=== PATIENT | female | born 1960 | race Caucasian/White ===

== ENCOUNTER 2017-07-08 09:22 | Emergency (ER) | payer BC ==
[2017-07-08] MEDS ORDERED: Norflex 60 MG/2 ML IM ONE (09:48)
--- NOTE | 2017-07-08 09:50 | ERPHSYRPT ---
- History of Present Illness Time Seen by Provider: 07/08/17 09:28 Source: patient, family Exam Limitations: no limitations Patient Subjective Stated Complaint: PT HERE FOR PAIN TO LEFT HIP RADIATING DOWN LEFT LEG SINCE JUNE 22,SHE STATES STARTED AFTER BENDING TO HUG SOMEONE, USING TENS UNIT AT HOME Triage Nursing Assessment: PT ALERT, ARRIVED PER OSVALDO W/D/P, NO EDEMA NOTED , PT UP TO B ATHROOM WITH NO DIFFICULTY Physician History: patient developed left hip and lower left sided back pain in mid June after bending over and twisting to hug someone; no prior hx; no numbness; no falls Timing/Duration: week(s) (2), sudden, worse Occured at: home Context: bending, twisted Quality: aching Hip Pain Location: hip (L) (and lower back left) Severity of Pain-Max: severe Severity of Pain-Current: moderate Modifying Factors: Improves With: movement Symptoms prior to fall: none Associated Symptoms: trouble walking (due to pain) Allergies/Adverse Reactions: erythromycin base [Erythromycin Base] Allergy (Verified 07/08/17 09:45) Home Medications: Buspirone HCl 10 mg PO BID 01/13/12 [History] Clonazepam [Klonopin] 1 mg PO Q12H PRN PRN 01/13/12 [History] Estropipate [Ogen] 0.75 mg PO DAILY 01/13/12 [History] Fluoxetine HCl [Prozac] 40 mg PO DAILY 01/13/12 [History] Levothyroxine Sodium 125 Mcg [Synthroid 125 Mcg] 100 mcg PO DAILY 01/13/12 [ History] Oxybutynin Chloride 5 mg [Ditropan 5 MG] 5 mg PO BID 01/13/12 [History] Hx Tetanus, Diphtheria Vaccination/Date Given: Yes (UP TO DATE) Hx Influenza Vaccination/Date Given: No Hx Pneumococcal Vaccination/Date Given: No Immunizations Up to Date: Yes - Past Medical History Pertinent Past Medical History: Yes Endocrine Medical History: Hypothyroidism Psycho-Social History: Anxiety, Depression - Past Surgical History Past Surgical History: Yes Female Surgical History: Hysterectomy - Social History Smoking Status: Never smoker Exposure to second hand smoke: No Drug Use: none Patient Lives Alone: No - Female History Hx Last Menstrual Period: HYSTER Hx Now: No - Nursing Vital Signs Nursing Vital Signs: Initial Vital Signs Temperature 97.7 F 07/08/17 09:39 Pulse Rate 64 07/08/17 09:39 Respiratory Rate 16 07/08/17 09:39 Blood Pressure 140/73 07/08/17 09:39 O2 Sat by Pulse Oximetry 98 07/08/17 09:39 Pain Scale Pain Intensity 10 - Physical Exam SpO2: 98 Oxygen Delivery: Room Air - Course Nursing assessment & vital signs reviewed: Yes - Radiology Exams Left Hip X-ray Interpretation: Interpreted by me, Negative, No Fracture L-Spine X-ray Interpretation: Interpreted by me, No Fracture, No Subluxation, Other ( mild spurring and DJD) Pelvis X-ray Interpretation: Interpreted by me, Negative, No Fracture Ordered Tests: Active Orders 24 hr Category Date Time Status IV Insertion STAT Care 07/08/17 09:46 Active Re-Check Vital Signs STAT Care 07/08/17 09:46 Active HIP UNI (2V) INCL PEL IF DONE Stat Exams 07/08/17 09:47 Ordered LUMBAR COMPLETE (MIN 4 VIEWS) Stat Exams 07/08/17 09:46 Ordered Medication Summary Discontinued Medications Generic Name Dose Route Start Last Admin Trade Name Freq PRN Reason Stop Dose Admin Ketorolac Tromethamine 30 mg 07/08/17 09:46 07/08/17 10:04 Toradol 30 Mg Injection IV 07/08/17 09:47 30 mg STAT ONE Administration Ketorolac Tromethamine Confirm 07/08/17 09:52 Toradol 30 Mg Injection Administered 07/08/17 09:53 Dose 30 mg .ROUTE .STK-MED ONE Ketorolac Tromethamine 30 mg 07/08/17 10:03 07/08/17 10:05 Toradol 30 Mg Injection IM 07/08/17 10:04 30 mg STAT ONE Administration Orphenadrine Citrate 60 mg 07/08/17 09:48 07/08/17 10:02 Norflex 60 Mg/2 Ml IM 07/08/17 09:49 60 mg STAT ONE Administration Orphenadrine Citrate Confirm 07/08/17 09:52 Norflex 60 Mg/2 Ml Administered 07/08/17 09:53 Dose 60 mg .ROUTE .STK-MED ONE - Progress Progress: re-examined (after xr and meds) Progress Note: 07/08/17 10:41 rechecked and minimal relief; no change in exam; reviewed xr and exam findings; discussed treatment plan and instructions given; at bedside Counseled pt/family regarding: diagnosis, need for follow-up, rad results - Departure Time of Disposition: 10:44 Departure Disposition: Home Clinical Impression: Lumbar back pain, Left hip pain Condition: Stable Critical Care Time: No Referrals: SORAIDA LR [Primary Care Provider] - Instructions: Lumbar Muscle Strain (DC) Additional Instructions: Back pain instructions. Rest, ice x 24-48 hours, then warm compresses; no heavy lifting (>20#'s) x 3-5 days; call [facility] or [facility] doctor in am for follow up appointment and or referral as needed. Return if problems. Take meds as prescribed.Follow-up with family doctor as directed. Call for appointment. Return if any problems. If you smoke please stop. Call or follow up with your family doctor for assistance if you need it to stop. Please wear your seatbelt when driving. Have a nice day. Thank you for allowing us to participate in your care today. :o) Dr David Wild Prescriptions: Naproxen Sodium [Anaprox Ds] 550 mg PO Q8H PRN PRN #14 tablet PRN Reason: Pain Chlorzoxazone [Parafon Forte Dsc] 500 mg PO QID #20 tablet
[2017-07-08] MEDS ORDERED: Norflex 60 MG/2 ML ONE (09:52)
[2017-07-08] MEDS ORDERED: TORAdol 30 mg Injection ONE (09:52)
[2017-07-08] MEDS: TORAdol 30 mg Injection IV ONE ×2 (10:03→10:04)
[2017-07-08] MEDS ORDERED: TORAdol 30 mg Injection IM ONE (10:03)
[2017-07-08 10:54] VITALS: BP 131/76; PULSE 70; O2SAT 97
--- NOTE | 2017-07-08 21:04 | XRAY ---
Indication: Low back pain. Comparison: June 20, 2016. 5 views of the lumbar spine unchanged again demonstrating minimal dextroscoliosis centered at L2-L3, minimal multilevel anterior endplate spurring, and mild bilateral L5-S1 degenerative facet hypertrophy. No new/acute findings. Pelvic floor macrocalcifications possibly calcified uterine fibroid.
--- NOTE | 2017-07-08 21:06 | XRAY ---
Indication: Left hip pain. Comparison: None AP pelvis and 2 views of the left hip demonstrates lumbar degenerative changes reported separately. Pelvic floor macrocalcification possible calcified uterine fibroid. No other bony, articular, or soft tissue abnormalities.
== END 2017-07-08 10:54 | disposition home or self-care (01) ==
LOC: ED 09:22
DX: M54.5 Low back pain (principal); M25.552 Pain in left hip; M54.9 Dorsalgia, unspecified; Z79.899 Other long term (current) drug therapy
CPT/HCPCS: 72110; 73502; 96372; 99283; J1885; J2360

== ENCOUNTER 2021-07-27 15:55 | Emergency (ER) | payer BC, MEDICARE ==
[2021-07-27] MEDS ORDERED: Ativan 1 MG ONE ×2 (16:14→16:17)
[2021-07-27] MEDS: Ativan 1 MG PO ONE ×2 (16:16→16:20)
[2021-07-27] MEDS ORDERED: xanAX 0.5 MG PO ONE (16:18)
[2021-07-27] MEDS ORDERED: xanAX 0.5 MG ONE (16:20)
[2021-07-27 16:33] LABS: Absolute Neutrophil Ct (ANC) 4.73 x10^3/uL (1.4-6.9); Basophil (Absolute #) 0.06 x10^3/uL (0-0.4); Eosinophil % 0.5 % (0.00-5.0); Eosinophil (Absolute #) 0.03 x10^3/uL (0-0.5); Hematocrit 38.3 % (35-47); Hemoglobin 12.7 g/dL (12.0-16.0); Lymphocyte (Absolute #) 1.06 x10^3/uL (1.0-4.6); Lymphocytes % 16.9 % (24.0-44.0); Mean Cell Volume 99.2 fL (78-100); Mean Corpuscular Hemoglobin 32.9 pg (26-32); Mean Corpuscular Hgb Concent. 33.2 g/dL (32-36); Mean Platelet Volume 10.2 fL (7.5-11.0); Monocyte (Absolute #) 0.38 x10^3/uL (0.0-1.3); Monocytes % 6.1 % (0.0-12.0); Neutrophil % 75.3 % (36.0-66.0); Platelet Count 285 x10^3/uL (150-450); Red Blood Count 3.86 x10^6/uL (4.1-5.4); White Blood Count 6.3 x10^3/uL (4.0-10.5)
--- NOTE | 2021-07-27 16:50 | ERPHSYRPT ---
- History of Present Illness Time Seen by Provider: 07/27/21 16:02 Source: patient Exam Limitations: no limitations Patient Subjective Stated Complaint: pt here for suicidal thoughts today, she states she has thoughts fo harming herself frequently, she denies having a plan, pt is uncooperative at times Triage Nursing Assessment: pt alert, crying, anxious, resp easy, skin w/d/p. no edema noted. she state " if i feel this bad in summer then what am i going to do this fall?" Physician History: Patient is here for suicidal ideation. Patient states that she would like to kill herself. Patient appears to have some psychotic features. Patient states that she is hearing Satan's voice and God's voice. States that she has a previous remote attempt at killing herself. Patient reported to her PCP today that she was suicidal, was then sent over to this emergency department for further evaluation. On my exam she is tearful, she admits to self-harm, she has psychotic features. Timing/Duration: today Severity: severe Modifying Factors: Improves With: other Associated Symptoms: denies symptoms Allergies/Adverse Reactions: erythromycin base [Erythromycin Base] Allergy (Verified 07/27/21 16:08) Home Medications: Fluoxetine HCl [Prozac] 40 mg PO DAILY 01/13/12 [History] Levothyroxine Sodium 125 Mcg [Synthroid 125 Mcg] 88 mcg PO DAILY 01/13/12 [History] Buspirone HCl 5 mg [Buspar 5 mg] 1 ea DAILY 07/27/21 [History] estradioL [Estradiol] 1 ea DAILY 07/27/21 [History] Hx Tetanus, Diphtheria Vaccination/Date Given: Yes (UP TO DATE) Hx Influenza Vaccination/Date Given: No Hx Pneumococcal Vaccination/Date Given: No Immunizations Up to Date: Yes Travel Risk - International Travel Have you traveled outside of the country in past 3 weeks: No - Coronavirus Screening Are you exhibiting any of the following symptoms?: No Close contact with a COVID-19 positive Pt in past 14-21 Days: No - Vaccine Status Have you recieved a Covid-19 vaccination: Yes [employer]: [employer] - Vaccination Dates Date of 2cond Vaccination (if applicable): 2020 - Review of Systems Constitutional: No Fever, No Chills Eyes: No Symptoms Ears, Nose, & Throat: No Symptoms Respiratory: No Cough, No Dyspnea Cardiac: No Chest Pain, No Edema, No Syncope Abdominal/Gastrointestinal: No Abdominal Pain, No Nausea, No Vomiting, No Diarrhea Genitourinary Symptoms: No Dysuria Musculoskeletal: No Back Pain, No Neck Pain Skin: No Rash Neurological: No Dizziness, No Focal Weakness, No Sensory Changes Psychological: Depression, Suicidal Ideations, Emotional Lability, Hallucinations Endocrine: No Symptoms All Other Systems: Reviewed and Negative - Past Medical History Pertinent Past Medical History: Yes Neurological History: No Pertinent History Cardiac History: No Pertinent History Respiratory History: No Pertinent History Endocrine Medical History: Hypothyroidism Musculoskeletal History: Osteoarthritis Psycho-Social History: Anxiety, Depression Other Medical History: thyroid removed - Past Surgical History Past Surgical History: Yes Female Surgical History: Hysterectomy - Social History Smoking Status: Never smoker Exposure to second hand smoke: No Drug Use: marijuana Patient Lives Alone: No - Nursing Vital Signs Nursing Vital Signs: Initial Vital Signs Temperature 97.2 F 07/27/21 15:56 Pulse Rate 116 H 07/27/21 15:56 Respiratory Rate 22 07/27/21 15:56 Blood Pressure 180/160 07/27/21 15:56 Pain Scale Pain Intensity 0 - Physical Exam General Appearance: no apparent distress, alert Eye Exam: PERRL/EOMI, eyes nml inspection Ears, Nose, Throat Exam: normal ENT inspection, TMs normal, pharynx normal, moist mucous membranes Neck Exam: normal inspection, non-tender, supple, full range of motion Respiratory Exam: normal breath sounds, lungs clear, No respiratory distress Cardiovascular Exam: regular rate/rhythm, normal heart sounds, normal peripheral pulses Gastrointestinal/Abdomen Exam: soft, normal bowel sounds, No tenderness, No mass Back Exam: normal inspection, normal range of motion, No CVA tenderness, No vertebral tenderness Extremity Exam: normal inspection, normal range of motion, pelvis stable Neurologic Exam: alert, oriented x 3, cooperative, sensation nml, No motor deficits Skin Exam: normal color, warm, dry, No rash Lymphatic Exam: No adenopathy SpO2 Interpretation: normal Comments: 07/27/21 16:50 Psych exam: Patient has hallucinations, suicidal ideation, depression, emotional liability on exam she is tearful. - Course Nursing assessment & vital signs reviewed: Yes EKG Interpreted by Me: Sinus Rhythm Ordered Tests: Active Orders 24 hr Category Date Time Status EKG-ER Only STAT Care 07/27/21 16:10 Active House Regular Diet Diet 07/28/21 Breakfast Active ACETAMINOPHEN Stat Lab 07/27/21 16:29 Completed CBC W DIFF Stat Lab 07/27/21 16:29 Completed CMP Stat Lab 07/27/21 16:29 Completed ETHYL ALCOHOL Stat Lab 07/27/21 16:29 Completed SALICYLATE Stat Lab 07/27/21 16:29 Completed UA W/RFX CULTURE Stat Lab 07/27/21 16:42 Completed Urine Triage Profile Stat Lab 07/27/21 16:44 Completed Medication Summary Discontinued Medications Generic Name Dose Route Start Last Admin Trade Name Frandy PRN Reason Stop Dose Admin Alprazolam 1 mg 07/27/21 16:18 07/27/21 16:20 Alprazolam 0.5 Mg Tablet PO 07/27/21 16:19 1 mg STAT ONE Administration Alprazolam Confirm 07/27/21 16:20 Alprazolam 0.5 Mg Tablet Administered 07/27/21 16:21 Dose 1 mg .ROUTE .STK-MED ONE Lorazepam 2 mg 07/27/21 16:11 07/27/21 16:20 Lorazepam 1 Mg Tablet PO 07/27/21 16:12 Not Given STAT ONE Lorazepam Confirm 07/27/21 16:14 Lorazepam 1 Mg Tablet Administered 07/27/21 16:15 Dose 1 mg .ROUTE .STK-MED ONE Lorazepam Confirm 07/27/21 16:17 Lorazepam 1 Mg Tablet Administered 07/27/21 16:18 Dose 1 mg .ROUTE .STK-MED ONE Lab/Rad Data: Laboratory Result Diagrams 07/27/21 16:29 07/27/21 16:29 Laboratory Results 07/27/21 07/27/21 07/27/21 Range/Units 16:44 16:42 16:29 WBC (4.0-10.5) x10^3/uL RBC (4.1-5.4) x10^6/uL Hgb (12.0-16.0) g/dL Hct (35-47) % MCV (78-100) fL MCH (26-32) pg MCHC (32-36) g/dL RDW (11.5-14.0) % Plt Count (150-450) x10^3/uL MPV (7.5-11.0) fL Gran % (36.0-66.0) % Immature Gran % (Auto) (0.00-0.4) % Nucleat RBC Rel Count (0.00-0.1) % Eos # (Auto) (0-0.5) x10^3/uL Immature Gran # (Auto) (0.00-0.03) x10^3u/L Absolute Lymphs (auto) (1.0-4.6) x10^3/uL Absolute Monos (auto) (0.0-1.3) x10^3/uL Absolute Nucleated RBC (0.00-0.01) x10^3u/L Lymphocytes % (24.0-44.0) % Monocytes % (0.0-12.0) % Eosinophils % (0.00-5.0) % Basophils % (0.0-0.4) % Absolute Granulocytes (1.4-6.9) x10^3/uL Basophils # (0-0.4) x10^3/uL Sodium 134 L (137-145) mmol/L Potassium 4.5 (3.5-5.1) mmol/L Chloride 97 L (98-107) mmol/L Carbon Dioxide 25 (22-30) mmol/L Anion Gap 16.1 H (5-15) MEQ/L BUN 12 (7-17) mg/dL Creatinine 0.94 (0.52-1.04) mg/dL Estimated GFR > 60.0 ML/MIN Glucose 97 (74-106) mg/dL Calcium 10.1 (8.4-10.2) mg/dL Total Bilirubin 0.90 (0.2-1.3) mg/dL AST 87 H (14-36) U/L ALT 84 H (0-35) U/L Alkaline Phosphatase 89 (38-126) U/L Serum Total Protein 8.5 H (6.3-8.2) g/dL Albumin 4.7 (3.5-5.0) g/dL Urinalys Dipstick Clnc MAIN LAB Urine Color YELLOW (YELLOW) Urine Appearance CLEAR (CLEAR) Urine pH 7.0 (5-6) Ur Specific Tappen 1.020 (1.005-1.025) POC Urine Protein Conf NEGATIVE (Negative) Urine Ketones SMALL-15 (NEGATIVE) Urine Nitrite NEGATIVE (NEGATIVE) Urine Bilirubin NEGATIVE (NEGATIVE) Urine Urobilinogen 0.2 (0-1) mg/dL Urine Leukocytes NEGATIVE (NEGATIVE) Urine WBC (Auto) NONE (0-5) /HPF Urine RBC (Auto) NONE (0-2) /HPF U Epithel Cells (Auto) RARE (FEW) /HPF Urine Bacteria (Auto) NONE SEEN (NEGATIVE) /HPF Urine RBC TRACE NON-HEM (0-5) Kyaw/ul Ur Culture Indicated? NO Urine Glucose NEGATIVE (NEGATIVE) mg/dL Salicylates < 1.0 L (2-20) mg/dL Urine Opiates Level NEGATIVE (NEGATIVE) Ur Methadone NEGATIVE (NEGATIVE) Acetaminophen < 10 L (10-30) ug/ml Urine Barbiturates NEGATIVE (NEGATIVE) Ur Phencyclidine (PCP) NEGATIVE (NEGATIVE) Urine Amphetamine NEGATIVE (NEGATIVE) U Benzodiazepine Level POSITIVE (NEGATIVE) Urine Cocaine NEGATIVE (NEGATIVE) Urine Marijuana (THC) POSITIVE (NEGATIVE) Ethyl Alcohol < 10 (0-10) mg/dL 07/27/21 Range/Units 16:29 WBC 6.3 (4.0-10.5) x10^3/uL RBC 3.86 L (4.1-5.4) x10^6/uL Hgb 12.7 (12.0-16.0) g/dL Hct 38.3 (35-47) % MCV 99.2 (78-100) fL MCH 32.9 H (26-32) pg MCHC 33.2 (32-36) g/dL RDW 13.0 (11.5-14.0) % Plt Count 285 (150-450) x10^3/uL MPV 10.2 (7.5-11.0) fL Gran % 75.3 H (36.0-66.0) % Immature Gran % (Auto) 0.2 (0.00-0.4) % Nucleat RBC Rel Count 0.0 (0.00-0.1) % Eos # (Auto) 0.03 (0-0.5) x10^3/uL Immature Gran # (Auto) 0.01 (0.00-0.03) x10^3u/L Absolute Lymphs (auto) 1.06 (1.0-4.6) x10^3/uL Absolute Monos (auto) 0.38 (0.0-1.3) x10^3/uL Absolute Nucleated RBC 0.00 (0.00-0.01) x10^3u/L Lymphocytes % 16.9 L (24.0-44.0) % Monocytes % 6.1 (0.0-12.0) % Eosinophils % 0.5 (0.00-5.0) % Basophils % 1.0 (0.0-0.4) % Absolute Granulocytes 4.73 (1.4-6.9) x10^3/uL Basophils # 0.06 (0-0.4) x10^3/uL Sodium (137-145) mmol/L Potassium (3.5-5.1) mmol/L Chloride (98-107) mmol/L Carbon Dioxide (22-30) mmol/L Anion Gap (5-15) MEQ/L BUN (7-17) mg/dL Creatinine (0.52-1.04) mg/dL Estimated GFR ML/MIN Glucose (74-106) mg/dL Calcium (8.4-10.2) mg/dL Total Bilirubin (0.2-1.3) mg/dL AST (14-36) U/L ALT (0-35) U/L Alkaline Phosphatase (38-126) U/L Serum Total Protein (6.3-8.2) g/dL Albumin (3.5-5.0) g/dL Urinalys Dipstick Clnc Urine Color (YELLOW) Urine Appearance (CLEAR) Urine pH (5-6) Ur Specific Tappen (1.005-1.025) POC Urine Protein Conf (Negative) Urine Ketones (NEGATIVE) Urine Nitrite (NEGATIVE) Urine Bilirubin (NEGATIVE) Urine Urobilinogen (0-1) mg/dL Urine Leukocytes (NEGATIVE) Urine WBC (Auto) (0-5) /HPF Urine RBC (Auto) (0-2) /HPF U Epithel Cells (Auto) (FEW) /HPF Urine Bacteria (Auto) (NEGATIVE) /HPF Urine RBC (0-5) Kyaw/ul Ur Culture Indicated? Urine Glucose (NEGATIVE) mg/dL Salicylates (2-20) mg/dL Urine Opiates Level (NEGATIVE) Ur Methadone (NEGATIVE) Acetaminophen (10-30) ug/ml Urine Barbiturates (NEGATIVE) Ur Phencyclidine (PCP) (NEGATIVE) Urine Amphetamine (NEGATIVE) U Benzodiazepine Level (NEGATIVE) Urine Cocaine (NEGATIVE) Urine Marijuana (THC) (NEGATIVE) Ethyl Alcohol (0-10) mg/dL - Progress Progress: improved Progress Note: 07/27/21 16:50 Patient has suicidal ideation with psychotic features. Patient needs to be admitted to a psychiatric unit. She will need inpatient psych. I did discuss this with the patient. She is mostly comfortable with it. She is currently voluntary. Patient will need to be medically cleared here. 07/27/21 17:50 Patient is medically cleared. [facility] be evaluated by [facility]. Most likely will need inpatient psychiatry. Counseled pt/family regarding: drug and/or alcohol abuse, lab results - Departure Departure Disposition: Transfer Clinical Impression: Suicidal ideation Condition: Good Critical Care Time: No Referrals: SORAIDA LR NP [Primary Care Provider] - Follow up/PCP as directed
[2021-07-27 16:57] LABS: ACETAMINOPHEN < 10 ug/ml (10-30); ALBUMIN 4.7 g/dL (3.5-5.0); ALKALINE PHOSPHATASE 89 U/L (38-126); ANION GAP 16.1 MEQ/L (5-15); BLOOD UREA NITROGEN 12 mg/dL (7-17); CHLORIDE 97 mmol/L (98-107); Calcium 10.1 mg/dL (8.4-10.2); Carbon Dioxide 25 mmol/L (22-30); Creatinine 1 0.94 mg/dL (0.52-1.04); EST GLOMERULAR FILTRATION RATE > 60.0 ML/MIN; ETHYL ALCOHOL < 10 mg/dL (0-10); Glucose 97 mg/dL (74-106); Potassium 4.5 mmol/L (3.5-5.1); SALICYLATE < 1.0 mg/dL (2-20); SGOT/AST 87 U/L (14-36); SGPT/ALT 84 U/L (0-35); SODIUM 134 mmol/L (137-145); Total Protein 8.5 g/dL (6.3-8.2)
[2021-07-27 17:05] LABS: Amphetamine,Urine NEGATIVE (NEGATIVE); Barbiturate,Urine NEGATIVE (NEGATIVE); Benzodiazepine,Urine POSITIVE (NEGATIVE); Cocaine,Urine NEGATIVE (NEGATIVE); Methadone,Urine NEGATIVE (NEGATIVE); PCP,Urine NEGATIVE (NEGATIVE); THC,Urine POSITIVE (NEGATIVE)
[2021-07-27 17:12] LABS: Opiate,Urine NEGATIVE (NEGATIVE)
[2021-07-27 17:17] LABS: Appearance CLEAR (CLEAR); Bilirubin NEGATIVE (NEGATIVE); Epithelial Cells RARE /HPF (FEW); Glucose NEGATIVE (NEGATIVE); Ketones SMALL-15 (NEGATIVE)
[2021-07-27 17:18] LABS: Dipstick done @ ? MAIN LAB; Nitrite NEGATIVE (NEGATIVE); Protein,Urine Dip NEGATIVE (Negative); RBC TRACE NON-HEM Ery/ul (0-5); Urobilinogen 0.2 mg/dL (0-1)
[2021-07-27 17:19] LABS: Bacteria NONE SEEN /HPF (NEGATIVE); Urine Cultured Indicated? NO
[2021-07-27 19:32] VITALS: O2SAT 96
[2021-07-27 20:24] LABS: INFLUENZA A NEGATIVE (NEGATIVE); INFLUENZA B NEGATIVE (NEGATIVE); RESPIRATORY SYNCTIAL VIRUS NEGATIVE (Negative); SARS-CoV-2 Xpert Express NEGATIVE (NEGATIVE)
[2021-07-27 21:50] VITALS: BP 122/55; PULSE 58
== END 2021-07-27 22:00 ==
LOC: ED 15:55
DX: R45.851 Suicidal ideations (principal); R44.0 Auditory hallucinations; F32.A Depression, unspecified; F41.9 Anxiety disorder, unspecified; Z20.828 Contact with and (suspected) exposure to other viral communicable diseases
CPT/HCPCS: 0241U; 36415; 80053; 80307; 81015; 85025; 93005; 99285; G0480; 90791; Q3014; A9270-GY